=== PATIENT | female | born 1980 | race Caucasian/White ===

== ENCOUNTER 2019-12-14 11:26 | Outpatient (CLI) | payer SELFPAY | END 2019-12-14 11:27 | disposition EMS.NT | LOC: EMS 11:26 | PROVIDERS: ATTEND Surgery | DX: R05 Cough (principal); R50.9 Fever, unspecified ==

== ENCOUNTER 2021-06-08 11:25 | Emergency (ER) | payer BC ==
[2021-06-08] MEDS ORDERED: IBUPROFEN 800 MG TABLET PO STA (12:07)
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
[2021-06-08 12:56] VITALS: BP 162/94
== END 2021-06-08 13:01 | disposition home or self-care (01) ==
LOC: ED 11:25
DX: T24.102A Burn of first degree of unspecified site of left lower limb, except ankle and foot, initial encounter (principal); X12.XXXA Contact with other hot fluids, initial encounter
CPT/HCPCS: 99282; 99283; A9270

== ENCOUNTER 2021-08-28 15:04 | Emergency (ER) | payer BC ==
[2021-08-28 15:10] VITALS: BP 135/88
--- NOTE | 2021-08-28 15:38 | ED Physician Documentation ---
History of Present Illness - Stated complaint Stated Complaint: R ANKLE INJ - Chief complaint Chief Complaint: Trauma Ext - Additonal information Additional information: 41-year-old female presents emergency department for evaluation of acute right lateral ankle pain. She rolled her ankle when she stepped on a dog toy at home. Did not strike her head. Reports multiple sprains to her ankle in the past. Due to pain she did not attempt to bear weight. Review of Systems Constitutional: reports: Reviewed and negative Nose: reports: Reviewed and negative Cardiac: reports: Reviewed and negative Respiratory: reports: Reviewed and negative Skin: reports: Reviewed and negative Musculoskeletal: reports: Joint pain PD PAST MEDICAL HISTORY - Present Medications Home Medications: Ambulatory Orders Medication Instructions Recorded Confirmed Silver Sulfadiazine Cream 1 applic TOP BID #25 gm 06/08/21 [Silvadene Cream] - Allergies Allergies/Adverse Reactions: Allergies Allergy/AdvReac Type Severity Reaction Status Date / Time No Known Drug Allergies Allergy Verified 08/28/21 15:08 - Immunizations Immunizations are current?: Yes Immunizations: TDAP current <10years PD ED PE EXPANDED - General General: Alert, No acute distress - Extremities Extremities: Right ankle (Tenderness and swelling the right lateral malleolus. Normal inversion eversion of the ankle. Normal dorsi and plantar flexion. No tenderness to the posterior Achilles or medial malleolus.) Results - Vitals Vitals: Vital Signs - 24 hr 08/28/21 15:08 Temperature 36.5 C Heart Rate 66 Respiratory 18 Rate Blood Pressure 135/88 H O2 Saturation 100 Oxygen O2 Source Room air - Rads (name of study) right ankle Radiology: EMP read indepedently (No acute fracture or dislocation.) Departure - Departure Disposition: 01 Home, Self Care Clinical Impression: Moderate right ankle sprain Qualifiers: Encounter type: initial encounter Qualified Code(s): S93.401A - Sprain of unspecified ligament of right ankle, initial encounter Condition: Stable Record reviewed to determine appropriate education?: Yes Instructions: ED Sprain Ankle Comments: Zabrina you are seen in the emergency department today for pain in the right side of your ankle after you rolled it. The x-ray does not show an obvious fracture and as we discussed at the bedside I suspect that this is simply a sprain injury. In general I would like you to wear the Aircast when out of bed. You can take Tylenol or ibuprofen for any discomfort. I do recommend that you continue to ice the ankle for 10 minutes 3-4 times a day. In general it is okay to attempt to begin bearing weight, and practicing range of motion exercises in the next 48 to 72 hours. However if your pain is not significantly improved over the next 7 to 10 days I do recommend that you have repeat imaging completed of the ankle to ensure that an occult fracture is not seen. However today your x-ray appears unremarkable.
--- NOTE | 2021-08-28 15:54 | XRAY Report ---
PROCEDURE: Ankle 3 View RT INDICATIONS: Trauma TECHNIQUE: 3 views of the ankle were acquired. COMPARISON: None. FINDINGS: BONES: No acute, displaced fracture or dislocation. The ankle mortise is maintained on these nonstre ssed views. Small plantar calcaneal enthesophyte. SOFT TISSUES: Thin ossific density superior to the anterior talus on the lateral view, which may refl ect remote injury. IMPRESSION: 1.No acute osseous abnormality. Reviewed by: Everton Garcia MD on 08/28/2021 3:52 PM PDT Approved by: Everton Garcia MD on 08/28/2021 3:52 PM PDT Station ID: [id number]
== END 2021-08-28 16:03 | disposition home or self-care (01) ==
LOC: ED 15:04
DX: S93.401A Sprain of unspecified ligament of right ankle, initial encounter (principal); X50.1XXA Overexertion from prolonged static or awkward postures, initial encounter; Y92.009 Unspecified place in unspecified non-institutional (private) residence as the place of occurrence of the external cause
CPT/HCPCS: 99282; 99283

== ENCOUNTER 2021-10-07 15:46 | Outpatient (CLI) | payer BC | END 2021-10-07 15:47 | disposition home or self-care (01) | LOC: LAB.N 15:46 | PROVIDERS: ATTEND Family Medicine | DX: M79.10 Myalgia, unspecified site (principal); Z20.822 Contact with and (suspected) exposure to COVID-19 ==